=== PATIENT | female | born 1980 | race Caucasian/White ===

== ENCOUNTER 2024-05-31 15:45 | Emergency (ER) | payer BC ==
[2024-05-31] MEDS: LORazepam 2 MG/ML SDV IM ONE (16:15)
== END 2024-05-31 16:40 | disposition home or self-care (01) ==
LOC: FB.ED 15:45
DX: S29.011A Strain of muscle and tendon of front wall of thorax, initial encounter (principal); F41.9 Anxiety disorder, unspecified; F17.200 Nicotine dependence, unspecified, uncomplicated; X58.XXXA Exposure to other specified factors, initial encounter
CPT/HCPCS: 96372; 99283; J2060